=== PATIENT | female | born 1955 | race American Indian/Alaskan Native ===

== ENCOUNTER 2016-04-13 07:57 | Emergency (ER) | payer MEDICAID ==
[2016-04-13 08:06] VITALS: BP 148/85
[2016-04-13] MEDS ORDERED: NORCO 5/325 PO ONE (08:28)
--- NOTE | 2016-04-13 08:29 | Emergency Department Report ---
Upper Extremity - HPI Chief Complaint: Extremity Injury, Upper Stated Complaint: LFT ARM PAIN Time Seen by Provider: 04/13/16 08:21 Upper Extremity: Right Forearm (swelling and pain after heavy object fell and forearm) Occurred When: 2 Days Mechanism: Hit with Object Severity: severe Symptoms: Yes Pain with Movement (left forearm), Yes Limited Range of Movement ( forearm, lt), Yes Swelling (forearm,lt), No Deformity, No Bruising/Ecchymosis, No Laceration or Abrasion Other History: Patient here reporting that 2 days ago heavy trays fell on her left forearm and now she is having pain and swelling to decrease movement. She denies any numbness or tingling. Pain is 10 out of 10 and she says she took [id number] Motrin without any relief. ED Review of Systems ROS: Stated complaint: LFT ARM PAIN Other details as noted in HPI Comment: All other systems reviewed and negative Constitutional: denies: chills, fever Respiratory: no symptoms reported Cardiovascular: denies: chest pain, palpitations, edema, syncope Gastrointestinal: denies: abdominal pain, nausea, vomiting, diarrhea Musculoskeletal: joint swelling, arthralgia. denies: back pain Skin: denies: rash Neurological: denies: headache, weakness, numbness, paresthesias, confusion, abnormal gait, vertigo ED Past Medical Hx - Past Medical History Previous Medical History?: Yes Hx GERD: Yes Hx Renal Disease: Yes Additional medical history: fibromyalgia - Surgical History Past Surgical History?: Yes Additional Surgical History: hysterectomy - Family History Family history: diabetes, hypertension - Social History Smoking Status: Current Every Day Smoker Substance Use Type: Alcohol, Marijuana - Medications Home Medications: Home Medications Medication Instructions Recorded Confirmed Last Taken Type Aspirin EC [Aspirin Enteric Coated 81 mg PO QDAY 04/06/13 04/06/13 04/06/13 09: 00 History TAB] Lisinopril [Zestril] 40 mg PO QDAY 04/06/13 04/06/13 04/06/13 09:00 History Meloxicam [Mobic] 7.5 mg PO QDAY 5 Days 04/06/13 Unknown Rx Omeprazole [PriLOSEC] 40 mg PO QDAY 04/06/13 04/06/13 04/06/13 09:00 History Valsartan [Diovan] 160 mg PO QDAY 04/06/13 04/06/13 04/06/13 09:00 History Acetaminophen/Codeine [Tylenol #3] 1 tab PO Q6H PRN #12 tab 04/13/16 Unknown Rx Ibuprofen [Motrin] 600 mg PO Q8H PRN #15 tablet 04/13/16 Unknown Rx Upper Extremity Exam - Exam General: Vital signs noted. No distress. Alert and acting appropriately. This is a 52-year-old female well-nourished well-developed in no acute distress. Head and Torso: No HEENT Abnormality, No Neck Tenderness, No Chest/Lungs Abnormality, No Abdominal Tenderness, No Back Tenderness Shoulder Exam: Yes Normal Range of Motion in Shoulder, No Shoulder Tenderness, No Clavicle Tenderness, No Shoulder Deformity, No AC Joint Tenderness Arm Exam: No Arm/Humerus Tenderness, No Arm Deformity Elbow: Yes Normal Range of Motion in Elbow, No Elbow Tenderness, No Elbow Deformity Forearm: Yes Forearm Tenderness (distal left forearm), Yes Pain with Pronation ( left forearm), Yes Pain with Supination (stable left forearm), No Forearm Deformity Wrist: Yes Normal ROM in Wrist, No Wrist Tenderness, No Wrist Deformity, No Snuffbox Tenderness, No Pain with Axial Thumb Compression Hand: Yes Normal ROM in Digit(s), No Hand Tenderness, No Hand Deformity, No Digit Tenderness, No Digit(s) Deformity, No Tendon Dysfunction CMS Exam: Yes Normal Distal Pulses, Yes Normal Capillary Refill, Yes Normal Distal Sensation, No Broken Skin ED Course Vital Signs 04/13/16 08:03 Temperature 97.4 F L Pulse Rate 81 Respiratory 20 Rate Blood Pressure 148/85 O2 Sat by Pulse 100 Oximetry - Reevaluation(s) Reevaluation #1: 04/13/16 10:18 Patient given [place] 5/325 mg by mouth 2 tablets for pain. - Orthopedic Splinting/Casting Injury #1 Side: left Upper Extremity Injury Location: forearm Upper Extremity Immobilizer: wrist splint ED Medical Decision Making - Radiology Data Radiology results: report reviewed X-ray report shows no fracture or dislocation. - Medical Decision Making ED course: Patient is status post injury to left forearm. X-ray report revealed no fracture or dislocation. I discussed the patient and told her that she has contusion of left forearm. See procedure note for splinting details. Patient was understanding of discharge diagnosis and treatment plan. She was discharged home with prescription for Motrin and Tylenol 3. Patient to follow- up with orthopedic in 3-5 days if pain is not relieved. I encouraged her to rest, ice, compress and elevate the area for the next 72 hours. Critical care attestation.: If time is entered above; I have spent that time in minutes in the direct care of this critically ill patient, excluding procedure time. ED Disposition Clinical Impression: Arthralgia of left forearm Contusion of left wrist Qualifiers: Encounter type: initial encounter Qualified Code(s): S60.212A - Contusion of left wrist, initial encounter Disposition: DISCHARGED TO HOME OR SELFCARE Is pt being admited?: No Does the pt Need Aspirin: No Condition: Stable Instructions: Wrist Injury (ED), Arthralgia (ED), Contusion in Adults (ED), RICE Therapy (ED) Prescriptions: Acetaminophen/Codeine [Tylenol #3] 1 tab PO Q6H PRN #12 tab PRN Reason: Pain Ibuprofen [Motrin] 600 mg PO Q8H PRN #15 tablet PRN Reason: Pain Referrals: MITA MARIN MD [Staff Physician] - 04/16/16 Forms: Work/School Release Form(ED)
--- NOTE | 2016-04-13 10:07 | XRay Report ---
LEFT WRIST, THREE VIEWS: HISTORY: Left wrist pain status post blunt trauma. FINDINGS: No articular abnormality. No fracture or dislocation. IMPRESSION: No evidence of acute fracture.
== END 2016-04-13 10:38 | disposition home or self-care (01) ==
LOC: ED 07:57
DX: S60.212A Contusion of left wrist, initial encounter (principal); M79.632 Pain in left forearm; K21.9 Gastro-esophageal reflux disease without esophagitis; F17.200 Nicotine dependence, unspecified, uncomplicated; F12.90 Cannabis use, unspecified, uncomplicated; Z79.82 Long term (current) use of aspirin; W18.30XA Fall on same level, unspecified, initial encounter; Y93.89 Activity, other specified; Y99.9 Unspecified external cause status; Y92.89 Other specified places as the place of occurrence of the external cause

== ENCOUNTER 2016-06-13 20:41 | Emergency (ER) | payer MEDICAID | END 2016-06-13 21:36 | disposition left against medical advice (07) | LOC: ED 20:41 | DX: R51 Headache (principal); R68.84 Jaw pain; Z53.21 Procedure and treatment not carried out due to patient leaving prior to being seen by health care provider ==

== ENCOUNTER 2017-03-26 19:05 | Emergency (ER) | payer MEDICAID ==
[2017-03-26 21:07] VITALS: BP 87/54
[2017-03-27] MEDS ORDERED: TYLENOL ONE (00:43)
[2017-03-27] MEDS ORDERED: TYLENOL PO ONE (00:44)
[2017-03-27] MEDS ORDERED: ULTRAM PO ONE (02:38)
--- NOTE | 2017-03-27 02:40 | Emergency Department Report ---
HPI - General Chief Complaint: Extremity Problem,Nontraumatic Time Seen by Provider: 03/27/17 01:55 - HPI HPI: Patient is a 61-year-old female with a history of fibromyalgia who presents ED complaining of bilateral wrist pain 1 month. Patient states that has been going on intermittently for the past couple of months patient states she did not sustain any injuries or trauma to the hands or arms. Patient states she normally goes and sees [place] but does not have an appointment until next month. She denies fevers/chills as nausea/vomiting/abdominal pain/chest pain. Patient denies loss of sensation in her hands. Patient states she is able to move hands but has pain intermittently. ED Past Medical Hx - Past Medical History Previous Medical History?: Yes Hx GERD: Yes Hx Renal Disease: Yes Additional medical history: fibromyalgia - Surgical History Past Surgical History?: Yes Additional Surgical History: hysterectomy - Social History Smoking Status: Current Every Day Smoker Substance Use Type: Alcohol, Marijuana - Medications Home Medications: Home Medications Medication Instructions Recorded Confirmed Last Taken Type Aspirin EC [Aspirin Enteric Coated 81 mg PO QDAY 04/06/13 04/06/13 04/06/13 09: 00 History TAB] Lisinopril [Zestril] 40 mg PO QDAY 04/06/13 04/06/13 04/06/13 09:00 History Meloxicam [Mobic] 7.5 mg PO QDAY 5 Days tablet 04/06/13 Unknown Rx Omeprazole [PriLOSEC] 40 mg PO QDAY 04/06/13 04/06/13 04/06/13 09:00 History Valsartan [Diovan] 160 mg PO QDAY 04/06/13 04/06/13 04/06/13 09:00 History Acetaminophen/Codeine [Tylenol #3] 1 tab PO Q6H PRN #12 tab 04/13/16 Unknown Rx Ibuprofen [Motrin] 600 mg PO Q8H PRN #15 tablet 04/13/16 Unknown Rx predniSONE [Deltasone] 10 mg PO QDAY #5 tab 03/27/17 Unknown Rx traMADol [Ultram 50 MG tab] 50 mg PO Q6HR PRN #20 tablet 03/27/17 Unknown Rx ED Review of Systems ROS: Stated complaint: PAIN BILAT IN ARMS/WRIST Other details as noted in HPI Constitutional: denies: chills, fever Eyes: denies: eye pain, eye discharge, vision change ENT: denies: ear pain, throat pain Respiratory: denies: cough, shortness of breath, wheezing Cardiovascular: denies: chest pain, palpitations Endocrine: no symptoms reported Gastrointestinal: denies: abdominal pain, nausea, diarrhea Genitourinary: denies: urgency, dysuria, discharge Musculoskeletal: arthralgia. denies: back pain, joint swelling Skin: denies: rash, lesions Neurological: denies: headache, weakness, paresthesias Psychiatric: denies: anxiety, depression Hematological/Lymphatic: denies: easy bleeding, easy bruising Physical Exam - Physical Exam Vital Signs: Vital Signs 03/26/17 21:01 Temperature 97.8 F Pulse Rate 80 Respiratory 18 Rate Blood Pressure 87/54 O2 Sat by Pulse 99 Oximetry Physical Exam: GENERAL: Alert and oriented x3, no apparent distress, Normal Gait, atraumatic. HEAD: Head is normocephalic and a-traumatic. LUNGS: Symetrical with respiration, No wheezing, no rales or crackles, CTAB. HEART: S1, S2 present, regular rate and rhythm without murmur, no rubs, no gallops. Non tender to palpation EXTREMITIES/MUSCULOSKELETAL: No cyanosis, clubbing, rash, lesions or edema. Full ROM bilaterally. UE/LE Pulses 2+ bilaterally. LE and UE 5+ strength bilaterally, wrist joints intact bilaterally, full range of motion movement on wrists bilat. no deformity No swelling, and erythematous bilaterally NEUROLOGIC: The patient is cooperative with no focal neurologic deficits. Normal speech. Normal sensation in bilateral upper and lower extremities, No loss of sensation, SKIN: Warm and dry, No lesions, No ulceration or induration present. ED Course Vital Signs 03/26/17 21:01 Temperature 97.8 F Pulse Rate 80 Respiratory 18 Rate Blood Pressure 87/54 O2 Sat by Pulse 99 Oximetry ED Medical Decision Making - Medical Decision Making 61 year-old female presents with wrist pain from fibromyalgia ED course: Patient received Tylenol in the ED, patient also received Ultram 50 mg Vital signs are normal patient is in no acute distress Discussed with patient follow-up with primary care physician. Discussed with the patient and take medications as prescribed. Patient has no neurological deficit. Patient is alert and oriented 3 and understands all instructions given. Discussed drowsiness effect of Flexeril makes her drowsy and not to operate machinery while taking flexeril Critical care attestation.: If time is entered above; I have spent that time in minutes in the direct care of this critically ill patient, excluding procedure time. ED Disposition Clinical Impression: Fibromyalgia Wrist pain, chronic Qualifiers: Laterality: left Qualified Code(s): M25.532 - Pain in left wrist Disposition: TO HOME OR SELFCARE Is pt being admited?: No Does the pt Need Aspirin: No Condition: Stable Instructions: Fibromyalgia (ED), Trigger Point Pain (ED), Arthralgia (ED) Additional Instructions: Make sure to follow up with the primary care physician as discussed. Take all your medications as you've been prescribed. If you have any worsening symptoms or develop new symptoms please return to ED immediately. Prescriptions: predniSONE [Deltasone] 10 mg PO QDAY #5 tab traMADol [Ultram 50 MG tab] 50 mg PO Q6HR PRN #20 tablet PRN Reason: Pain Referrals: MEME SKINNER MD [Primary Care Provider] - 3-5 Days [facility] [Outside] - 3-5 Days Forms: Accompanied Note, Work/School Release Form(ED) Time of Disposition: 02:41
== END 2017-03-27 05:03 | disposition home or self-care (01) ==
LOC: ED 19:05
DX: M25.532 Pain in left wrist (principal); M25.531 Pain in right wrist; G89.29 Other chronic pain; M79.7 Fibromyalgia; K21.9 Gastro-esophageal reflux disease without esophagitis; F17.200 Nicotine dependence, unspecified, uncomplicated; Z79.82 Long term (current) use of aspirin; F12.10 Cannabis abuse, uncomplicated
CPT/HCPCS: 99282